=== PATIENT | female | born 1985 | race Two or more races ===

== ENCOUNTER → 2021-05-27 | Outpatient (CLI) | payer OTHER ==
[~2021-05-27] MED LIST: BUPIVACAINE MPF 0.5% 10 ML VIAL. IJ ONE; GADOTERATE 5 MMOL/10ML VIAL. IVP ONE; IOHEXOL 300 MG/ML 50 ML VIAL. IART ONE; LIDOCAINE 1% Multi-Dose 20 ML VIAL. INJ ONE; SUGAMMADEX SODIUM 200 MG/2 ML VIAL. IVP ONE
--- NOTE | 2021-05-27 13:25 | RAD ---
DG ARTHROGRAM SHOULDER RIGHT History: Reason: SHOULDER PAIN, DECREASED ROM / Spl. Instructions: 5ml omni 300, 10ml saline,5ml bupi vicain.5%,.2ml clariscan .4min flouro yessenia / History: PROCEDURE: The risks, alternatives, benefits of the procedure discussed with the patient. Written informed cons ent is obtained. A timeout is performed. Skin site was chosen under fluoroscopy. This area is prepped and draped in normal sterile fashion. 1% Lidocaine is used for superficial and deep local anesthesia. Using intermittent fluoroscopy, a 22 -gauge spinal needle is advanced into the joint space. Then a dilute gadolinium solution is instilled , total volume approximately 11 mL. The needle was removed. Hemostasis is achieved. The patient to lerated the procedure well. There is no immediate complication. Patient was transferred to MRI. Fluoroscopy time 0.4 minutes Fluoroscopic images: 1. IMPRESSION: 1. Fluoroscopically guided right shoulder arthrogram prior to MRI. Electronically signed by: Eitan Parham DO (05/27/2021 1:23 PM) [id number]
--- NOTE | 2021-05-28 08:31 | RAD ---
EXAM: MRI arthrogram right shoulder DATE: 05/27/2021 9:58 AM COMPARISON: None INDICATION: Reason: acute right shoulder pain / Spl. Instructions: right shoulder arthrogram / Histor y: TECHNIQUE: Multiplanar, multisequence MRI arthrogram of the right shoulder was performed following th e administration of intra-articular gadolinium contrast. FINDINGS: Iatrogenic distention of the right glenohumeral joint with gadolinium contrast. Trace subacromial-sub deltoid bursal edema, without gadolinium characteristics, bursitis. AC joint degenerative changes are seen. Mild lateral downsloping of the distal acromion. No os acromi taj. Moderate increased signal and thickening of the supraspinatus tendon and infraspinatus tendon, consis tent with tendinosis. No discrete rotator cuff tear is seen. Accounting for iatrogenic changes, the r otator cuff muscle signal and bulk is normal without fatty atrophy. No discrete labral tear is seen. Articular cartilage is grossly preserved. Long head biceps tendon is intact. IMPRESSION: 1. No discrete labral tear. 2. Moderate supraspinatus and infraspinatus tendinosis without discrete rotator cuff tear. Electronically signed by: Deejay Scott MD (05/28/2021 8:28 AM) [id number]
--- NOTE | 2021-05-28 08:39 | RAD ---
EXAM: MRI RIGHT WRIST DATE: 05/27/2021 11:00 AM CLINICAL HISTORY: Reason: carpal tunnel syndrome of right wrist / Spl. Instructions: / History: COMPARISON: None. TECHNIQUE: Multiplanar, multisequence MR imaging of the right wrist was performed without IV contrast . FINDINGS: T1 marrow signal is preserved. No fracture or osteonecrosis. Visualized flexor and extensor tendons are intact, normal in signal and morphology. No tenosynovitis. Flexor retinaculum is intact. No abnormal bowing of the flexor retinaculum. Median nerve is grossly normal in signal and morphology. No associated mass in the carpal tunnel or associated with the media n nerve. Scapholunate and lunotriquetral ligament are intact. TFC disc is intact. The radial, foveal and stylo id attachments are intact. Distal radial ulnar joint, radiocarpal and midcarpal joints are preserved without joint effusions. IMPRESSION: Median nerve is grossly normal in signal and morphology. There is no abnormal bowing of the flexor re tinaculum or associated mass. Electronically signed by: Deejay Scott MD (05/28/2021 8:37 AM) [id number]
== END | disposition home or self-care (01) ==
LOC: RAD 09:08
PROVIDERS: ATTEND Pediatrics
DX: G56.01 Carpal tunnel syndrome, right upper limb (principal); M25.511 Pain in right shoulder
CPT/HCPCS: 23350; 73221; 73222; 77002; A9575; J3490; Q9967